=== PATIENT | female | born 1985 | race Caucasian/White ===

== ENCOUNTER 2017-01-19 12:20 | Emergency (ER) | payer MEDICAID ==
--- NOTE | 2017-01-19 13:40 | EDPHY ---
H & P Time Seen by Provider: 01/19/17 12:36 HPI/ROS: CHIEF COMPLAINT: medication refill HISTORY OF PRESENT ILLNESS: 31-year-old female presents emergency department requesting a refill of her Ambien. Patient reports a history of anxiety and insomnia and she ran out of her Ambien today did not know she had so few left. Patient has been unable to get hold of her primary care doctor and is requesting a refill of her Ambien. Smoking Status: Light smoker Physical Exam: GEN: Awake, alert, oriented, tearful RESP: nl resp effort MSK: Normal appearing SKIN: No break in skin Constitutional: Initial Vital Signs Temperature (C) 36.8 C 01/19/17 12:20 Heart Rate 97 01/19/17 12:20 Respiratory Rate 18 01/19/17 12:20 Blood Pressure 143/111 H 01/19/17 12:20 O2 Sat (%) 98 01/19/17 12:20 O2 Delivery Mode Room Air Allergies/Adverse Reactions: amoxicillin Allergy (Verified 06/10/16 12:16) Sulfa (Sulfonamide Antibiotics) Allergy (Verified 06/10/16 12:16) Home Medications: Medication Instructions Recorded Ambien 06/10/16 Clonazepam 06/10/16 Zolpidem Tartrate [Ambien 10 mg] 10 mg PO HS PRN #5 tablet 01/19/17 MDM/Departure - Depart Disposition: Home, Routine, Self-Care Clinical Impression: Medication refill Condition: Good Instructions: Medicine Refill (ED) Additional Instructions: Take your medication as prescribed. Follow up with Dr. Lopez this week. Prescriptions: Zolpidem Tartrate [Ambien 10 mg] 10 mg PO HS PRN #5 tablet PRN Reason: Sleep/Insomnia Referrals: DANIEL LOPEZ [Non Staff Provider (MD)] - As per Instructions
[2017-01-19 13:53] VITALS: BP 136/98; PULSE 64; RESP 16; TEMP 96.8; O2SAT 97
== END 2017-01-19 13:52 | disposition home or self-care (01) ==
DX: Z76.0 Encounter for issue of repeat prescription (principal); F17.200 Nicotine dependence, unspecified, uncomplicated

== ENCOUNTER 2017-06-12 12:28 | Emergency (ER) | payer MEDICAID ==
[2017-06-12] MEDS ORDERED: NS 1,000 ML IV ONE (15:28)
--- NOTE | 2017-06-12 15:31 | EDPHY ---
H & P Stated Complaint: [facility]5days[facility] Time Seen by Provider: 06/12/17 15:27 HPI/ROS: HPI: This is a 32-year-old female who presents with Chief Complaint: [facility]5days[facility]TSS Location: Suprapubic Quality: Pain Duration: Since Saturday Signs and Symptoms: no fever, no chills, no back pain, no vaginal discharge, no vaginal bleeding, no dysuria Timing: Gradual onset Severity: Moderate Context: Patient reports that she is was on her menses last Saturday; put in a tampon in the middle of the evening and forgot that she placed it until 5 days later when she removed it. Since Saturday, she has noted some suprapubic pressure , nonradiating, mild to moderate in nature, cramping. [facility] by [facility]; pelvic exam was performed and vaginal cultures taken. Patient does admit that she may be feeling a bit anxious about the situation may be contributing to her symptoms. Modifying Factors: Comment: ROS: see HPI Constitutional: No fever, no chills, no weight loss Eyes: No blurred vision Respiratory: No shortness of breath, no cough Cardiovascular: No chest pain Gastrointestinal: No nausea, no vomiting, no diarrhea Genitourinary: No dysuria Extremities: No myalgias Neurologic: No weakness, no numbness Skin: No rashes Hematologic: No bruising, no bleeding MEDICAL/SURGICAL/SOCIAL HISTORY: Medical history: Generally healthy. Does not take any regular medications. Surgical history: Denies Social history: CONSTITUTIONAL: Extremely well-appearing adult white female, awake and alert, no obvious distress HEENT: Atraumatic and normocephalic, PERRL, EOMI. Tympanic membranes clear. Oropharynx clear, no exudate and moist pink mucosa. Airway patent. No lymphadenopathy. No meningismus. Negative Nikolsky's sign Cardiovascular: Normal S1/S2, regular rate, regular rhythm, without murmur rub or gallop. PULMONARY/CHEST: Symmetrical and nontender. Clear to auscultation bilaterally. Good air movement. No accessory muscle usage. ABDOMEN: Soft, nondistended, nontender, no rebound, no guarding, no peritoneal signs, no masses or organomegaly. No CVAT. PELVIC: Def[facility] as [facility] EXTREMITIES: 2/2 pulses, no deformities, no clubbing, no cyanosis or edema. NEUROLOGICAL: no focal neuro deficits. GCS 15. SKIN: Warm and dry, no erythema. no rash. Good capillary refill. Source: Patient Exam Limitations: No limitations - Personal History LMP (Females 10-55): 8-14 Days Ago Current Tetanus Diphtheria and Acellular Pertussis (TDAP): No - Medical/Surgical History Hx Asthma: Yes Hx Chronic Respiratory Disease: No Hx Diabetes: No Hx Cardiac Disease: No Hx Renal Disease: No Hx Cirrhosis: No Hx Alcoholism: No Hx HIV/AIDS: No Hx Splenectomy or Spleen Trauma: No Other PMH: numerous staph infections, asthma, anxiety, - Social History Smoking Status: Current every day smoker Constitutional: Initial Vital Signs Temperature (C) 36.9 C 06/12/17 12:35 Heart Rate 67 06/12/17 12:35 Respiratory Rate 16 06/12/17 12:35 Blood Pressure 130/86 H 06/12/17 12:35 O2 Sat (%) 97 06/12/17 12:35 O2 Delivery Mode Room Air Allergies/Adverse Reactions: amoxicillin Allergy (Intermediate, Verified 06/12/17 12:37) swelling Sulfa (Sulfonamide Antibiotics) Allergy (Unknown, Verified 06/12/17 12:37) Home Medications: Medication Instructions Recorded Clonazepam 06/10/16 Zolpidem Tartrate [Ambien 10 mg] 10 mg PO HS PRN #5 tablet 01/19/17 Medical Decision Making - Diagnostics Imaging Results: Imaging Impressions Pelvic/Renal Ultrasound 06/12/17 15:29 Impression: There is a trace of free fluid seen in the cul-de-sac which is probably physiologic. Follicular cysts are noted with no dominant cyst seen. Results called and discussed with Martha LEWIS on 06/12/2017 at 17:00 ED Course/Re-evaluation: Blood culture, labs, urinalysis, IV fluids, IV medications ordered Spoke with mid-level provider Monique Freed who advised pelvic exam was performed; vaginal specimens taken; they have no concern for PID. 1640: Reviewed labs and completely unremarkable; urinalysis does not show infection/dehydration. 1700: Called by radiologist Dr. Deleon; limited ultrasound does not show appendicitis. Pelvic ultrasound is unremarkable. Reassessed patient, who reports that she feels 100% better and wants to be discharged immediately. No signs of PID/endometritis/ovarian torsion/ectopic /toxic shock syndrome or antibiotic administration at this time. Advised pelvic rest x 1 week. Differential Diagnosis: Differential diagnosis includes but is not limited to anemia, electrolyte imbalance, staph infection - Data Points Laboratory Results: Laboratory Results 06/12/17 15:49 06/12/17 15:45 06/12/17 06/12/17 06/12/17 Unknown 15:49 15:49 WBC RBC Hgb Hct MCV MCH MCHC RDW Plt Count MPV Neut % (Auto) Lymph % (Auto) [place] % (Auto) Eos % (Auto) Baso % (Auto) Nucleat RBC Rel Count Absolute Neuts (auto) Absolute Lymphs (auto) Absolute Monos (auto) Absolute Eos (auto) Absolute Basos (auto) Absolute Nucleated RBC Immature Gran % Immature Gran # VBG Lactic Acid 1.3 mmol/L mmol/L (0.7-2.1) Sodium Potassium Chloride Carbon Dioxide Anion Gap BUN Creatinine Estimated GFR Glucose Calcium Beta HCG, Qual NEGATIVE Urine Color PALE YELLOW Urine Appearance CLEAR Urine pH 7.0 (5.0-7.5) Ur Specific Maxwell 1.003 (1.002-1.030) Urine Protein NEGATIVE (NEGATIVE) Urine Ketones NEGATIVE (NEGATIVE) Urine Blood NEGATIVE (NEGATIVE) Urine Nitrate NEGATIVE (NEGATIVE) Urine Bilirubin NEGATIVE (NEGATIVE) Urine Urobilinogen NEGATIVE EU EU (0.2-1.0) Ur Leukocyte Esterase NEGATIVE (NEGATIVE) Urine Glucose NEGATIVE (NEGATIVE) 06/12/17 06/12/17 15:49 15:45 WBC 7.26 10^3/uL 10^3/uL (3.80-9.50) RBC 4.51 10^6/uL 10^6/uL (4.18-5.33) Hgb 14.4 g/dL g/dL (12.6-16.3) Hct 41.4 % % (38.0-47.0) MCV 91.8 fL fL (81.5-99.8) MCH 31.9 pg pg (27.9-34.1) MCHC 34.8 g/dL g/dL (32.4-36.7) RDW 12.3 % % (11.5-15.2) Plt Count 257 10^3/uL 10^3/uL (150-400) MPV 10.9 fL fL (8.7-11.7) Neut % (Auto) 53.2 % % (39.3-74.2) Lymph % (Auto) 36.1 % % (15.0-45.0) [place] % (Auto) 6.6 % % (4.5-13.0) Eos % (Auto) 3.2 % % (0.6-7.6) Baso % (Auto) 0.6 % % (0.3-1.7) Nucleat RBC Rel Count 0.0 % % (0.0-0.2) Absolute Neuts (auto) 3.87 10^3/uL 10^3/uL (1.70-6.50) Absolute Lymphs (auto) 2.62 10^3/uL 10^3/uL (1.00-3.00) Absolute Monos (auto) 0.48 10^3/uL 10^3/uL (0.30-0.80) Absolute Eos (auto) 0.23 10^3/uL 10^3/uL (0.03-0.40) Absolute Basos (auto) 0.04 10^3/uL 10^3/uL (0.02-0.10) Absolute Nucleated RBC 0.00 10^3/uL 10^3/uL (0-0.01) Immature Gran % 0.3 % % (0.0-1.1) Immature Gran # 0.02 10^3/uL 10^3/uL (0.00-0.10) VBG Lactic Acid Sodium 134 mEq/L mEq/L (134-144) Potassium 4.3 mEq/L mEq/L (3.5-5.2) Chloride 100 mEq/L mEq/L (97-110) Carbon Dioxide 24 mEq/l mEq/l (22-31) Anion Gap 10 mEq/L mEq/L (8-16) BUN 11 mg/dL mg/dL (7-23) Creatinine 0.9 mg/dL mg/dL (0.6-1.0) Estimated GFR > 60 Glucose 147 mg/dL H mg/dL (70-100) Calcium 10.4 mg/dL mg/dL (8.5-10.4) Beta HCG, Qual Urine Color Urine Appearance Urine pH Ur Specific Maxwell Urine Protein Urine Ketones Urine Blood Urine Nitrate Urine Bilirubin Urine Urobilinogen Ur Leukocyte Esterase Urine Glucose Medications Given: Discontinued Medications Sodium Chloride (Ns) 1,000 mls @ 0 mls/hr IV ONCE ONE; Wide Open PRN Reason: Protocol Stop: 06/12/17 15:29 Last Admin: 06/12/17 15:50 Dose: 1,000 mls Departure - Departure Disposition: Home, Routine, Self-Care Clinical Impression: Feared condition not demonstrated Retained tampon Qualifiers: Encounter type: initial encounter Qualified Code(s): T19.2XXA - Foreign body in vulva and vagina, initial encounter Condition: Good Instructions: Dysmenorrhea (ED) Additional Instructions: Please return immediately to the [facility] for re-evaluation if you have any increase in your signs and symptoms. Please follow pelvic rest x 1 week. Referrals: [facility] [Provider Group] - As per Instructions
[2017-06-12 15:51] LABS: COLOR PALE YELLOW; LEUKOCYTE ESTERASE,URINE NEGATIVE (NEGATIVE); NITRITE,URINE NEGATIVE (NEGATIVE)
[2017-06-12 16:01] VITALS: TEMP 98.1
[2017-06-12 16:03] LABS: % IMMATURE GRANULYOCYTES 0.3 % (0.0-1.1); ABSOLUTE IMMATURE GRANULOCYTES 0.02 10^3/uL (0.00-0.10); ADD DIFF? NO; ADD MORPH? NO; ADD SCAN? NO; ATYPICAL LYMPHOCYTE FLAG 10 (0-99); FRAGMENT RBC FLAG 0 (0-99); HEMATOCRIT 41.4 % (38.0-47.0); HEMOGLOBIN 14.4 g/dL (12.6-16.3); LEFT SHIFT FLG 0 (0-99); LIPEMIA HEMOLYSIS FLAG 90 (0-99); MEAN CELL HEMOGLOBIN 31.9 pg (27.9-34.1); MEAN CELL HEMOGLOBIN CONCENTR. 34.8 g/dL (32.4-36.7); MEAN CELL VOLUME 91.8 fL (81.5-99.8); MEAN PLATELET VOLUME 10.9 fL (8.7-11.7); PLATELET CLUMPS FLAG 10 (0-99); PLATELET COUNT 257 10^3/uL (150-400); RED BLOOD CELL COUNT 4.51 10^6/uL (4.18-5.33); RED CELL DISTRIBUTION WIDTH 12.3 % (11.5-15.2)
[2017-06-12 16:12] LABS: ANION GAP 10 mEq/L (8-16); CALCIUM 10.4 mg/dL (8.5-10.4); CARBON DIOXIDE 24 mEq/l (22-31); CHLORIDE 100 mEq/L (97-110); CREATININE 0.9 mg/dL (0.6-1.0); GLOMERULAR FILTRATION RATE > 60; GLUCOSE 147 mg/dL (70-100); POTASSIUM 4.3 mEq/L (3.5-5.2); SODIUM 134 mEq/L (134-144)
[2017-06-12] MEDS ORDERED: KETOROLAC 30 MG/1 ML SDV IVP ONE (16:33)
[2017-06-12 17:25] VITALS: BP 114/68; PULSE 50; RESP 13; O2SAT 99
== END 2017-06-12 17:24 | disposition home or self-care (01) ==
DX: T19.2XXA Foreign body in vulva and vagina, initial encounter (principal); J45.909 Unspecified asthma, uncomplicated; F17.200 Nicotine dependence, unspecified, uncomplicated; E86.9 Volume depletion, unspecified; X58.XXXA Exposure to other specified factors, initial encounter
CPT/HCPCS: 96374; J1885

== ENCOUNTER 2017-10-15 10:49 | Emergency (ER) | payer OTHER, MEDICAID ==
[2017-10-15 10:57] VITALS: TEMP 98.6
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
[2017-10-15] MEDS ORDERED: LIDOCAINE 4%/MENTHOL 1% PATCH TD ONE ×3 (11:03→11:12)
[2017-10-15 12:18] VITALS: BP 128/91; PULSE 69; RESP 18; O2SAT 100
[2017-10-15] MEDS ORDERED: PATCH REMOVAL 1 EA PATCH TD SCH ×2 (21:00)
== END 2017-10-15 12:18 | disposition home or self-care (01) ==
DX: S16.1XXA Strain of muscle, fascia and tendon at neck level, initial encounter (principal); S39.012A Strain of muscle, fascia and tendon of lower back, initial encounter; J45.909 Unspecified asthma, uncomplicated; F17.200 Nicotine dependence, unspecified, uncomplicated; V89.2XXA Person injured in unspecified motor-vehicle accident, traffic, initial encounter; Y92.410 Unspecified street and highway as the place of occurrence of the external cause; Y93.89 Activity, other specified